=== PATIENT | male | born 1980 | race Caucasian/White ===

== ENCOUNTER 2024-03-09 08:24 | Outpatient (CLI) | payer BC, SELFPAY ==
--- NOTE | ~2024-03-09 | XR_ITS ---
XR chest 2V Ordering provider: Ranjeet Garcia, History: 43 years Male with . COUGH X 3 WEEKS . Comparison: None. FINDINGS: MEDIASTINUM: The cardiac silhouette is not enlarged. LUNGS: No infiltrates, effusions or pneumothorax. OTHER: No free air under the diaphragm. IMPRESSION: No acute cardiopulmonary pathology. Reviewed, dictated and finalized at location A.
== END 2024-03-09 08:25 | disposition home or self-care (01) ==
LOC: ANHIMG 08:29
PROVIDERS: PCP Internal Medicine; Visit Provider Internal Medicine
DX: R05.9 Cough, unspecified (principal)
CPT/HCPCS: 71046